=== PATIENT | female | born 2000 | race Caucasian/White ===

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

== ENCOUNTER 2018-09-15 00:20 | Observation (INO) | payer OTHER ==
[2018-09-15] MEDS ORDERED: Ondansetron ODT 4 MG TAB PO PRN (03:10)
[2018-09-15] MEDS ORDERED: Acetaminophen 325 MG TAB PO PRN (03:10)
[2018-09-15 04:57] VITALS: BMI 22.4
[2018-09-15 06:09] LABS: #Lymphocytes 0.9 thou/uL (1.20-3.40); #Monocytes 0.1 thou/uL (0.11-0.59); #Neutrophils 4.9 thou/uL (1.40-6.50); %Basophils 0.4 % (0.0-1.0); %Eosinophils 0.1 % (0.0-10.0); %Lymphocytes 15.1 % (28.0-48.0); %Monocytes 1.5 % (0.0-4.0); Hemoglobin 14.3 g/dL (12.0-16.0); Mean Corpuscular HGB CONC 33.7 g/dL (32.0-36.0); Mean Corpuscular Hemoglobin 31.2 pg (25.0-35.0); Mean Corpuscular Volume 92.4 fL (78.0-98.0); Mean Platelet Volume 9.6 fL (7.4-10.4); Platelet Count 247 thou/uL (130-400); RBC Distribution Width 10.5 % (11.5-14.5)
[2018-09-15 06:32] LABS: Anion Gap 11 mmol/L (10-20); BUN (Urea Nitrogen) 10 mg/dL (8.4-21.0); Calc. Creatinine Clearance 131 mL/min (70-130); Calcium 9.6 mg/dL (7.8-10.44); Carbon Dioxide 23 mmol/L (22-29); Chloride 109 mmol/L (98-107); Estimated GFR-MDRD Greater than 90; Glucose 127 mg/dL (70-105); Potassium 4.2 mmol/L (3.5-5.1); Sodium 139 mmol/L (136-145)
[2018-09-15] MEDS ORDERED: Scopolamine 1.5 mg/72 hour Patch TD SCH (11:30)
[2018-09-15] MEDS: Enoxaparin Sodium 40 MG/0.4 ML SYRINGE SC SCH (12:42)
--- NOTE | 2018-09-15 14:57 | ULT ---
LEFT LOWER EXTREMITY VENOUS DOPPLER: Date: 09/15/18 PROVIDED CLINICAL HISTORY: Left lower extremity pain. FINDINGS: Bennett scale and color Doppler sonography with spectral analysis performed of the left common femoral, femoral, popliteal, posterior tibial, greater saphenous, and profunda femoral veins, demonstrating a normal sonographic appearance to each. IMPRESSION: No sonographic evidence for left lower extremity deep venous thrombosis. POS: DANY
--- NOTE | 2018-09-15 18:01 | PDOC.PN ---
- Subjective Encounter Start Date: 09/15/18 Encounter Start Time: 13:00 Patient history reviewed. Continues to have some vertigo and difficulty walking due to the vertigo. Falling to one side. Also concerned about her left calf. She has some tenderness there. She has had a DVT there several years ago when in a cast. Feels similar. - Objective Resuscitation Status - Order Detail: 09/15/18 03:10 Resuscitation Status Routine Resuscitation Status: FULL: Full Resuscitation Vital Signs & Weight: Vital Signs (12 hours) Temp Pulse Resp BP Pulse Ox 09/15/18 16:00 98.5 F 87 14 88/52 L 98 09/15/18 12:17 97.7 F 73 18 106/69 100 09/15/18 07:10 97.7 F 64 16 109/56 L 98 Weight Weight 135 lb Result Diagrams: 09/15/18 04:52 09/15/18 04:52 Phys Exam - Physical Examination Constitutional: NAD Respiratory: no wheezing, no rales, no rhonchi, clear to auscultation bilateral Cardiovascular: RRR, no significant murmur, no rub Gastrointestinal: soft, non-tender, no distention, positive bowel sounds Musculoskeletal: no edema Slight TTP in the left mid-calf medially. No palpable cords. Small subcut linear fullness. No erythema, no calor Neurological: non-focal, moves all 4 limbs Psychiatric: normal affect, A&O x 3 Dx/Plan (1) Vertigo Code(s): R42 - DIZZINESS AND GIDDINESS Status: Acute (2) Pain of left calf Code(s): M79.662 - PAIN IN LEFT LOWER LEG Status: Acute - Plan * [facility] * Obtained MRI reports and reviewed the images. * Negative MRI, MRA, CT head. * Labs essentially normal. * Got worse with BZD. * No relief with Meclizine. * Consulted Neurology. * Started scopolamine patch. * Per Neuro - could go home with negative MRI report and improved symptoms. * Doppler LE. * * Returned at patient request. They are still very concerned about the fact that she cannot walk. Still has vertigo at rest. Multiple family members in the room. Reviewed the workup and the results. May need to give the patch more time. Reassured that there was nothing major found at this time. They are very worried about the fact that she is missing the first week of classes due to this and are eager to get her to the point she can get back to being functional. Nurse discussed with Dr. Law. Wants to give the patch more time. I will check ESR, CRP, TSH, T4.
[2018-09-15 20:37] LABS: Thyroid Stimulating Hormone 1.7684 uIU/mL (0.35-4.94)
--- NOTE | 2018-09-15 22:18 | PDOC.EVN ---
Event Note - Event Note Event Note: I have had detailed discussion with patient and family regarding current conditions and medical plan, I have called Dr Law , we have reviewed chart and records from prior to transfer, all tests have been negative, and from neuro stand point there is no other plan that can be offered in our center, we have consulted ENT and Dr Veliz will kindly see the patient in his office tomorrow morning. Communication to RN has been given so arrangement for consult can be done. further plan after ent evaluation. Pt has also considered possibility of going home , but on physical exam done by myself at bedside, pt leans to the right when asked to ambulate. So it would be unsafe to d/c in that condition. If unable to address from ENT then possibility discussed with Dr Law is to transfer the patient to a hospital with a higher level of care.
--- NOTE | 2018-09-16 00:45 | CON ---
DATE OF CONSULTATION: CHIEF COMPLAINT: Dizziness. HISTORY OF PRESENT ILLNESS: The patient is a 17-year-old young lady who comes with a history of dizziness. The patient had recent workup as well. Her symptoms started approximately one week ago since Monday night she has been constantly dizzy and she did not respond to meclizine or to Ativan or prednisone. The patient had medical records sent over from [facility] and since I am on tele medicine consult, I did not directly review these results reports, but with the help of our nurse, I was able to understand that this patient had investigations performed at [facility], was kept there including and had MRI, CT angio, and we are still waiting on all of those results to be sent to our facility. The patient even had physical therapy with Carey maneuver, which did not help. Therefore, she comes to our hospital for evaluation and treatment. The patient reports 3-4 years ago she had vertigo and those episodes would last 45 seconds to 1 minute and she used meclizine back then and she was told that this could be a vestibular migraine and was also seen by an ENT physician was told she had vertigo and never followed up with a neurologist or an ENT doctor after that. In July, she started to feel dizzy. She had blurriness of the right side of her eye and numbness and weakness of the right face, which lasted approximately 3 hours and she did not seek any medical help for that symptom in July, but this week since Monday, she has been having dizziness and she has had no change in meclizine this whole week and on , she would feel dizzy when she turns. She had right eye blurred vision and she feels that during the spell of dizziness, she feels like she is spinning in circles and has sensory symptoms. This dizziness is not positional. There is no vomiting, but she feels uneasy and nauseous. She used to have migraines about 2 years ago and those were associated with photophobia, phonophobia, nausea, loss of vision in both eyes with blurred vision. She could not read or gamboa and she had been three times in the ER with those headaches. She does have headache once or twice a month and she has Motrin, which resolves with Motrin and this is a headache that is on both sides on top of her head. PREVIOUS MEDICAL HISTORY: She had a blood clot about 3-4 years ago after she was wearing crutches for a fractured left foot and pain in the calf. She went to the emergency room and was admitted to [facility] in [place] for five days. She was on Lovenox and she was also evaluated by solvent mixer and was treated for three months with Lovenox injections. The patient did have a history of having unsteadiness and inability to walk at this time. She has a history of vertigo as discussed above. She reports she has immune system problems. FAMILY HISTORY: Brother is 22, parents are 55 and 57. Mother has lupus and had cancer of appendix. No migraines in her family. SOCIAL HISTORY: The patient is a sophomore in [employer]. Nonsmoker. No alcohol. REVIEW OF SYSTEMS: PULMONARY: Negative for shortness of breath or cough. CARDIOVASCULAR: Negative for chest pain or palpitations. GI: Negative for diarrhea or vomiting. NEUROLOGICAL: Positive for dizziness and difficulty with her walking. ENT: Positive for vertigo. LABORATORY WORKUP: White count 6, hemoglobin 14.3, hematocrit 42.5, platelets 247. Sodium 139, potassium 4.2, chloride 109, BUN 10, creatinine 0.67, glucose 127. Her MRI reports as stated they are still pending. She did have a vascular ultrasound today for left lower extremity pain and there was no evidence of DVT in the left lower extremity. PHYSICAL EXAMINATION: VITAL SIGNS: Blood pressure is 109/56, pulse 64, temperature 97.7, respiratory rate 16. GENERAL APPEARANCE: Thin built, well-nourished young woman, who seems slightly upset about her symptoms. CHEST: Clear vesicular breathing. CARDIOVASCULAR: S1 and S2 heard. No murmurs. ABDOMEN: Soft and nontender. NEUROLOGIC: Higher intellectual functions normal, orientation to time, place, and person and appropriate conversation and cranial nerves. Normal extraocular movements. No facial asymmetry. Normal sensation of face. Pupils are 2 mm, reactive to light bilaterally. Normal hearing to finger rub bilaterally. Tongue midline. No atrophy noted. Motor bulk normal. Tone normal. Strength is 5/5 in upper and lower extremities in deltoid, biceps, triceps, wrist extension and flexion, finger extension and flexion bilaterally. Deep tendon reflexes 2+ throughout. Sensory normal to touch and proprioception. Cerebellar, normal [id number], [id number]. Hallpike maneuver was positive with her having vertigo when going from a lying down to a sitting position. No nystagmus was found. IMPRESSION: The patient is a 17-year-old young lady with history of having had migraine headaches about 2 years ago and she hardly has any headaches except for once a month or so and she takes Motrin and headache is relieved. In July, she experienced dizziness with blurred vision in the right side along with right facial numbness, which lasted about 3 hours and this week she felt dizzy and when she turned and she has a right eye blurred sensation which continued to persist. At this time, her examination shows positive Hallpike maneuver and she was unable to walk without support and felt was very unsteady. Clinical diagnosis is consistent with vertigo, likely either due to inner ear cause such as Meniere's or other conditions that are ENT related versus basilar migraine. TREATMENT RECOMMENDATIONS: I will start her on scopolamine patch. We will need to obtain MRI report to review them and see if she has any abnormalities on her MRI, particularly in the brainstem, posterior cerebral area. Please consult ENT for evaluation. Job ID: [id number]
[2018-09-16 05:35] LABS: ALT (SGPT) 12 U/L (8-55); AST (SGOT) 10 U/L (5-30); Alkaline Phosphatase 45 U/L (40-150); Anion Gap 12 mmol/L (10-20); BUN (Urea Nitrogen) 17 mg/dL (8.4-21.0); Bilirubin, Total 0.4 mg/dL (0.2-1.2); Calc. Creatinine Clearance 111 mL/min (70-130); Calcium 9.1 mg/dL (7.8-10.44); Carbon Dioxide 26 mmol/L (22-29); Chloride 106 mmol/L (98-107); Estimated GFR-MDRD Greater than 90; Globulin 1.6 g/dL (2.4-3.5); Glucose 94 mg/dL (70-105); Protein, Total 5.6 g/dL (6.0-8.3); Sodium 140 mmol/L (136-145)
[2018-09-16] MEDS: Enoxaparin Sodium 40 MG/0.4 ML SYRINGE SC SCH (10:14)
[2018-09-16 12:05] VITALS: BP 108/67; TEMP 98.6
--- NOTE | 2018-09-16 12:45 | HP ---
PRIMARY CARE DOCTOR: The patient has no primary care doctor. CODE STATUS: Full code. TIME OF EVALUATION: 3 a.m. CHIEF COMPLAINT: Dizziness. HISTORY OF PRESENT ILLNESS: This is a 17-year-old female patient with past medical history not significant for any specific condition, came to hospital, transferred from [facility] as the patient was having persistent dizziness and blurred vision. Symptoms have been present for the past few days and has been probably getting worse. The patient's mother had a history of lupus and testing been sent for that to be ruled out. Also, there were some concerns about the patient having MS. MRI was done, was negative. Echo was done, was negative. Labs have been negative. Vital signs being negative. MRA was negative. The patient is still complaining about the symptoms, so the patient has been transferred to get Neurology evaluation in the hospital. REVIEW OF SYSTEMS: CONSTITUTIONAL: No fever, chills, or generalized weakness. RESPIRATORY: No cough, sputum production, or shortness of breath. CARDIOVASCULAR: No chest pain or palpitation. GASTROINTESTINAL: No nausea. No vomiting, diarrhea, or abdominal pain. METAL FRAMER: The patient has dizziness and blurred vision. No headache or feeling lightheaded. GENITOURINARY: No burning on urination. EXTREMITIES: No leg swelling. All other systems were reviewed and negative except for the findings mentioned over. PAST MEDICAL HISTORY: Negative for any significant medical problems. She did report having some similar symptoms at high school. FAMILY HISTORY: Mother had a recent diagnosis of lupus. SOCIAL HISTORY: Denies alcohol. No drugs. No smoking history. The patient is in college. PHYSICAL EXAMINATION: VITAL SIGNS: Normal. GENERAL APPEARANCE: The patient is alert, oriented, not in acute distress. HEENT: Eyes; normal conjunctivae. Moist oral mucosa. Anicteric. No JVD. RESPIRATORY: Bilateral air entry. No rales. No wheezing. Symmetric expansion. CARDIOVASCULAR: Normal rate. Regular rhythm. No murmurs. No gallops. No edema. ABDOMEN: Soft. Normal bowel sounds. MUSCULOSKELETAL: Baseline range of motion and strength. No tenderness. SKIN: Warm and intact. No pallor. No rash. No redness. Peripheral pulses are present. Capillary refill seems to be intact. NEUROLOGIC: No evidence of any new focal weakness. Baseline speech. Cranial nerves II through XII intact. PSYCHIATRIC: The patient is in good mood. No anxiety. Resting comfortably. Oriented, optimal judgment. LABORATORY DATA: EKG was reviewed and it was done prior to transfer and it was normal. Prior to transfer, echo labs, vital signs, MRI and MRA were done and were normal. ASSESSMENT AND PLAN: The patient will be placed in the hospital with the following medical problems; 1. Persistent dizziness with possible near-syncope episode at some point, not clear extensive workup has been done, has been negative. We will consult Neurology before proceeding and doing any further testing. We will follow recommendations. 2. Deep venous thrombosis prophylaxis. We will monitor . Job ID: [id number]
--- NOTE | 2018-09-16 15:37 | PRG ---
DATE OF SERVICE: 09/16/2018 CHIEF COMPLAINT: Vertigo. INTERVAL HISTORY: The patient's father was in the room as well, and I also spoke to ENT physician, who was consulted on this patient. The patient reported she is still not having any improvement, and she reports she is still having symptoms, and Dr. Veliz came to the room and saw this patient. He discussed her case with me, and the patient has some disturbance in the lateral ear canals, and there was no specific ENT explanation per his examination by bedside. The patient does not respond to meclizine, Valium, and Ativan, and at this point, she is also on scopolamine patch, and there was no improvement. CURRENT REPORT: There are no additional imaging reports or other reports available. PHYSICAL EXAMINATION: VITAL SIGNS: Blood pressure was 114/57, temperature 98.4, pulse 71, respiratory rate 16, and O2 sats 98. NEUROLOGIC: Normal extraocular movements. No facial asymmetry. Higher intellectual function. She is oriented to time, place, and person. Motor exam, normal bulk and tone, and strength is 5/5. Normal cerebellar exam. IMPRESSION: The patient is a 17-year-old lady with unusual episodes of vertigo. This is described to me as a sense of movement of self, and this is persistent now for approximately 1 week, and she has been to two different hospitals so far, ours being the 2nd hospital. She went to [facility] earlier and had a full workup and was discharged without any clear vascular or other events. It is difficult to determine where this vertigo is coming from. Upon discussion with Dr. Veliz, it is possible she may have some inner ear dysfunction. However, predominantly, this seems to be either a migraine-like event or a seizure-like disorder. At this time, we do not have facilities for continuous EEG either. I discussed the case with her father, who was present in the room and the patient as well, and I recommended the following; start Topamax to help with her symptoms. If it is migraine or seizure, she will have some relief. I started her on a low dose, and we will increase the dose to 50 mg twice daily from tomorrow, and I also discussed with the patient and her father that she needs to be at a facility that there is a continuous EEG recording to rule out these are not unusual seizures like events and I also conveyed the same to the nurse stating that this patient needs to be transferred to a facility with continuous EEG recording. The patient did not mention to me that she passed out and had shaking spells, which she stated to the physician, and when we rediscussed this history, the patient stated yes. Last , she was walking to the kitchen, became super dizzy, blacked out, and had chills along with right eye blurred vision. This is one of the reasons why we could consider an atypical seizure as a possibility in the differential diagnosis. At this time, I am unable to provide sufficient relief to this patient and I recommend strongly that she be transferred to a higher level facility where there is ability to continuous EEG monitoring. I have conveyed this to the family members plus the nurse. Please call me if you have any further questions. Job ID: [id number]
--- NOTE | 2018-09-16 18:08 | DIS ---
DATE OF ADMISSION: 09/15/2018 DATE OF DISCHARGE: 09/16/2018 DISCHARGE DIAGNOSES: 1) Vertigo 2) Ataxia HOSPITAL COURSE: This patient is a 17-year-old female, who presented to outside emergency department originally with episodes of vertigo which were affecting her ability to walk. The patient underwent a CT scan of the brain, which was negative. She was also given some benzodiazepine, which failed to improve her symptoms and actually made her worse. The patient had a history of vertigo and had meclizine at home, which she has tried on several occasions on preceding day and had no improvement with that whatsoever. The patient was subsequently transferred to [facility], where she underwent an MRI and MRA, which were negative. She did receive some steroids, and labs were unremarkable. The family felt the patient needed evaluation by Neurology and she was therefore transferred to our facility. The patient was seen by our neurologist, who started the patient on scopolamine. However, the patient failed to have significant response to the scopolamine. She subsequently had evaluation by ENT, who felt the patient was not likely having peripheral vertigo and felt it was more likely neurologic and could follow the patient for more outpatient testing. Neurology saw the patient again and felt that she might benefit from the addition of some topiramate, assuming that the patient might be having some migraine-type symptom versus seizure type activity. It was felt the patient would benefit from transfer to a facility where she could get continuous EEG monitoring. Talked to the patient and her parents about the potential options for transfer, which was in the works versus discharging the patient to the care of her family, so that they could return to their home in [place] and she could follow through her PCP tomorrow to pursue getting this accomplished as an outpatient. Ultimately, talked to Masood, who is working with Dr. Law, who felt extremely confident that it was a perfectly acceptable plan per the Neurology perspective and therefore, we decided to pursue discharge. The patient today reports that she is walking a little better and felt like symptoms are somewhat improved. Her repeat labs today show a normal CMP with the exception of a total protein slightly low at 5.6, globulin low at 1.6. Her free T4 is 1.0. Her TSH is normal at 1.77. Temperature is 98.6, pulse 65, respirations 18, O2 saturation 100% on room air, and blood pressure 108/67. The patient appears to be in no distress. She is conversant, makes good eye contact, and has normal movement in all extremities. DISPOSITION: The patient will be discharged home to the care of her parents. She understands that she is not to drive until she is released by her PCP. She is encouraged to take precautions in order to avoid falling. She is to have a regular diet. DISCHARGE MEDICATION: scopolamine patch 1.5 mg transdermally q.3 days. Topamax 25 mg b.i.d., which can be increased by her PCP as indicated. ACTIVITY: As tolerated. No driving until released by her PCP. Fall precautions. DIET: Regular FOLLOW UP: We discussed the situation at length. Again, we discussed the options of potential transfer vs. discharging her for outpatient follow-up. We discussed the risks and benefits of the options. She is to call her PCP's office in [place] in the morning. I received the PCP' s phone number, so that I can call and speak with the PCP in order to catch them up on the whole situation. They will take the imaging disc with them. She was encouraged to again follow up with Neurology and ENT in [place] through the direction of her PCP. The patient and her parents are amenable to that plan. They should return to the closest emergency department should she have any problems prior to the followup. Job ID: [id number] [facility]
[2018-09-16] MEDS ORDERED: Topiramate 25 MG TAB PO SCH (21:00)
--- NOTE | 2018-09-17 08:39 | PDOC.EVN ---
Event Note - Event Note Event Note: Called the patient's PCP office at [phone]. Went through the phone tree and the call was simply disconnected. Will try again.
--- NOTE | 2018-09-17 10:36 | PDOC.EVN ---
Event Note - Event Note Event Note: I spoke with patient's primary care clinic and left my information so that I could give a clinical update to whomever would be seeing Jayshree. I also called the patient twice and the call went to voicemail. I called her mother and she said Jayshree was still sleeping this morning. They were fine and were discussing their options. I let her know that my number was with the PCP if they needed anything.
== END 2018-09-16 15:45 | disposition home or self-care (01) ==
LOC: 2SE 00:20
PROVIDERS: ADMIT Hospitalist; ATTEND Hospitalist
DX: R42 Dizziness and giddiness (principal); M79.662 Pain in left lower leg; Z86.718 Personal history of other venous thrombosis and embolism
CPT/HCPCS: 36415; 80048; 80053; 84439; 84443; 85025; 85652; 86140; 96372; G0378; J1650; Q0162